=== PATIENT | female | born 1970 | race Caucasian/White ===

== ENCOUNTER 2018-10-04 11:15 | Day surgery (SDC) | payer BC, OTHER ==
[~2018-10-04] VITALS: Ht 165.1 cm; Wt 61.6 kg
[2018-10-04 07:05] LABS: URINE PREG TEST NEGATIVE (NEGATIVE)
[2018-10-04 07:16] LABS: HEMATOCRIT 42.8 % (36.0-47.0); HEMOGLOBIN 14.2 g/dl (12.0-15.5); MEAN CORPUSCULAR HEMOGLOBIN 31.3 pg (27.0-33.0); MEAN CORPUSCULAR HGB CONC 33.2 g/dl (32.0-36.5); MEAN CORPUSCULAR VOLUME 94.5 fl (80.0-96.0); PLATELET COUNT, AUTOMATED 242 10^3/uL (150-450); RED BLOOD COUNT 4.53 10^6/uL (4.00-5.40); WHITE BLOOD COUNT 6.4 10^3/uL (4.0-10.0)
[2018-10-04 07:49] LABS: BLOOD UREA NITROGEN 14 MG/DL (7-18); CALCIUM LEVEL 8.9 MG/DL (8.5-10.1); CARBON DIOXIDE LEVEL 26 MEQ/L (21-32); CHLORIDE LEVEL 108 MEQ/L (98-107); CREATININE FOR GFR 0.86 MG/DL (0.55-1.30); GLOMERULAR FILTRATION RATE > 60.0 (>58); GLUCOSE, FASTING 94 MG/DL (70-100); POTASSIUM SERUM 3.9 MEQ/L (3.5-5.1); SODIUM LEVEL 142 MEQ/L (136-145)
[2018-10-04] MEDS: fentaNYL 100 MCG/2 ML INJECTION (J3010) IV PRN ×2 (10:20→11:24)
[2018-10-04] MEDS: LR 1,000 ML IV SCH ×2 (10:30→17:35)
[2018-10-04] MEDS: PERCOCET 5MG/325MG TAB PO PRN ×2 (10:30→10:31)
[~2018-10-04 11:15] MED LIST: ACETAMINOPHEN 1000MG 100ML IV BTL (OFIRMEV) (J0131 PER 10MG) As Ordered ONE; BUPIVACAINE/EPIN 0.25% 30 ML VIAL As Ordered ONE; FLUORESCEIN 10% (100MG/ML) 5 ML VIAL As Ordered ONE; HYDROmorphone HCL 2 MG/ML 1ML VIAL (J1170) As Ordered ONE; IBUP1TAB7 PO; KETOROLAC 60 MG/2 ML VIAL (J1885) As Ordered ONE; LIDOCAINE 2% INJ 100 MG/5 ML SDV (FOR ANES.) As Ordered ONE; LIDOCAINE 2% JELLY 6 ML SYRINGE As Ordered ONE; LR 1,000 ML IV ONE; LR 1,000 ML IV SCH; MEPERIDINE INJ 25 MG/ML VIAL (J2175) IV PRN; METOCLOPRAMIDE INJ 10MG/2ML VIAL (J2765) As Ordered ONE; METOCLOPRAMIDE INJ 10MG/2ML VIAL (J2765) IV PRN; MIDAZOLAM INJ 2 MG/2 ML VIAL (J2250) As Ordered ONE; ONDANSETRON 4MG/2ML VIAL (J2405) As Ordered ONE; ONDANSETRON 4MG/2ML VIAL (J2405) IV PRN; OXYC1TAB23 PO; PERCOCET 5MG/325MG TAB As Ordered ONE; PERCOCET 5MG/325MG TAB PO PRN; PROPOFOL 200 MG/20 ML VIAL As Ordered ONE; ROCURONIUM BROMIDE 50 MG/5 ML VIAL As Ordered ONE; SUGAMMADEX SODIUM 500 MG/5 ML VIAL (BRIDION) As Ordered ONE; ZOLO100T PO; dexameTHASONE 4 MG/ML 1ML VIAL (J1100) As Ordered ONE; fentaNYL 100 MCG/2 ML INJECTION (J3010) As Ordered ONE; fentaNYL 250 MCG/5 ML INJECTION (J3010) As Ordered ONE
[2018-10-04 11:20] VITALS: BP 111/64
[2018-10-04 11:50] VITALS: BP 105/58
[2018-10-04] MEDS: SIMETHICONE 80 MG CHEW TAB PO SCH ×3 (12:11→23:51)
[2018-10-04 12:50] VITALS: BP 105/59
--- NOTE | 2018-10-04 12:52 | RO ---
DATE OF PROCEDURE: 10/04/2018 Jenni is a 47-year-old female with extensive history of pelvic pain who was found to have bilateral complex cysts on ultrasound. After counseling in the office and having a negative endometrial biopsy, a decision was made to proceed with a robotic assisted total hysterectomy, bilateral salpingo-oophorectomy and a cystoscopy. PREOPERATIVE DIAGNOSES: 1. Pelvic pain. 2. Bilateral complex ovarian cysts. POSTOPERATIVE DIAGNOSES: 1. Pelvic pain. 2. Bilateral complex ovarian cysts. PROCEDURE: 1. Robotic-assisted total hysterectomy. 2. Bilateral salpingo-oophorectomy. 3. Cystoscopy. SURGEON: Dr. Nagi Lei SUPERVISOR STRIPPING: ANESTHESIA: General. COMPLICATIONS: None. ESTIMATED BLOOD LOSS: 30 mL. SPECIMEN SENT TO LAB: Uterus, tubes and bilateral ovaries. FINDINGS: Normal uterus with enlarged ovaries. On cystoscopy, bilateral ureteral jets were noted. No evidence of any bladder injury noted. DESCRIPTION OF PROCEDURE: After obtaining informed consent and visiting with the patient in the holding area, she was then taken back to the operating room where general anesthetic was found to be adequate. She was then draped and prepped in the usual sterile fashion in dorsal lithotomy position. At this point, a HUMI II uterine manipulator was placed. We then turned our attention to the abdomen where an 8 mm infraumbilical incision was made. Using the Veress needle, the abdomen was insufflated with CO2 gas to approximately 3.5 liters. We then placed an 8 mm trocar under direct visualization for the camera port. We then placed two left 8 mm lateral ports for robotic arm two and the assist port and on the right side an 8 mm lateral port was placed for robotic arm one. The patient was then placed in steep Trendelenburg. The robot was brought to the patient's side on a 45 degrees angle. The target anatomy was identified. After placing the camera port, targeting was completed. We then docked robotic arm one and two in the usual sterile fashion. Endo shear and a bipolar grasper was then placed, Endo shear in arm one and bipolar grasper in arm two. I then unscrubbed and went to the surgeon console and began the surgery. At this point with the patient in steep Trendelenburg and the bowel pushed out of the operative field, I identified the infundibulopelvic ligament which was cauterized and cut using the vessel sealer. We then took serial bites to include the round ligament and the uterine arteries all the way down to the uterine artery. At this point, the anterior leaflet of the broad ligament was dissected to create a bladder flap. The opposite side was done in similar fashion. The bladder flap anteriorly was completed. The uterine arteries were secured with minimal bleeding. The vessel sealer was then removed and Endo shear was inserted. Anterior and posterior colpotomy was then performed. The uterus, bilateral fallopian tubes and ovaries were removed through the vagina. At this point, a moistened sponge lap was placed in the vagina to maintain pneumoperitoneum and the Endo shear removed. A needle xm1 tank driver inserted and a #2-0 V-Loc suture was also inserted through the assist port. The vaginal cuff was then closed in two layers using the V-Loc suture. The peritoneum over the vaginal cuff was also closed. The pelvis was copiously irrigated with normal saline and suctioned out. 1 mL of Furacin was given by the anesthesiologist to assist with the cystoscopy. I then rescrubbed and went to the patient's side. The bladder was retrograde filled with 230 mL of normal saline. Lake catheter removed. Cystoscope was inserted. Bilateral ureteral jets were noted with yellow dye coming out of the ureters. No evidence of any bladder injury noted. At this point, the cystoscope was removed. The Lake catheter was placed back in the bladder for drainage. All instruments removed including the trocars and the laparoscopic ports were closed in a subcuticular fashion using #3-0 Vicryl. Dermabond placed on the skin and 0.25% Marcaine used for postoperative pain. The patient tolerated the procedure well. She was then transferred to recovery room in stable condition.
[2018-10-04 13:50] VITALS: BP 107/59
[2018-10-04 14:50] VITALS: BP 111/59
[2018-10-04] MEDS: IBUPROFEN 800 MG TAB PO SCH ×2 (16:37→21:09)
[2018-10-04 20:00] VITALS: BP 116/53
[2018-10-05] VITALS: BP 112/56
[2018-10-05] MEDS: IBUPROFEN 800 MG TAB PO SCH ×2 (03:52→08:21)
[2018-10-05 04:00] VITALS: BP 103/56
[2018-10-05] MEDS: SIMETHICONE 80 MG CHEW TAB PO SCH (06:26)
[2018-10-05 08:48] VITALS: BP 99/56
== END 2018-10-05 10:35 | disposition home or self-care (01) ==
LOC: M SDC 11:15 → M PED 11:20 → M SDC 10-05 10:35
PROVIDERS: ATTEND Obstetrics & Gynecology
DX: R10.2 Pelvic and perineal pain (principal); N83.291 Other ovarian cyst, right side; N83.292 Other ovarian cyst, left side; F41.9 Anxiety disorder, unspecified; F32.9 Major depressive disorder, single episode, unspecified; Z79.899 Other long term (current) drug therapy; G43.909 Migraine, unspecified, not intractable, without status migrainosus
CPT/HCPCS: 36415; 58571; 80048; 84703; 85027; 86850; 86900; 86901; 88307; J0131; J0690; J1100; J1170; J1885; J2250; J2405; J2765; J3010